=== PATIENT | female | born 1995 | race Caucasian/White ===

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

== ENCOUNTER 2017-01-28 22:38 | Emergency (ER) | payer MEDICAID ==
[~2017-01-28] VITALS: Ht 170.2 cm; Wt 98.4 kg
[2017-01-28 23:07] VITALS: BP 141/67
[2017-01-28 23:19] VITALS: BP 141/67
--- NOTE | 2017-01-28 23:20 | NUR ---
patient taken to bed 7
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
[2017-01-29] MEDS ORDERED: LIDOCAINE 2% 100 MG/5 ML UJET TP ONE (00:10)
[2017-01-29] MEDS ORDERED: LIDOCAINE 1% ED 50 ML ONE (00:23)
[2017-01-29] MEDS ORDERED: NEOMYCIN/POLYMYXIN/BACITRACIN 0.9 GM/1 PKT TP ONE (00:23)
[2017-01-29] MEDS ORDERED: LIDOCAINE 2% 1000 MG/50 ML VIAL INJ ONE (00:27)
== END 2017-01-29 00:46 | disposition home or self-care (01) ==
LOC: MED 22:38
DX: M79.675 Pain in left toe(s) (principal); L60.8 Other nail disorders; Z88.0 Allergy status to penicillin; Z88.5 Allergy status to narcotic agent
CPT/HCPCS: 11730; 99283; J2001